=== PATIENT | male | born 1975 | race Caucasian/White ===

== ENCOUNTER 2020-08-22 14:17 | Inpatient (IN) | payer OTHER, SELFPAY ==
[~2020-08-22] VITALS: Ht 185.4 cm; Wt 235.9 kg
[2020-08-22 14:29] VITALS: Ht 185.4 cm; Wt 235.9 kg
[2020-08-22 15:36] LABS: BASOPHIL % 0.2 % (0.2-1.5)
[2020-08-22 15:37] LABS: PLATELET COUNT 333 x10^3mcL (152-348)
[2020-08-22 15:44] LABS: RED CELL DISTRIBUTION WIDTH 17.7 % (12.1-16.2)
[2020-08-22 15:57] LABS: BILIRUBIN TOTAL 0.8 mg/dL (0.20-1.00); CALCIUM 8.3 mg/dL (8.5-10.1); CARBON DIOXIDE 24.8 mmol/L (21-32); CREATININE SERUM 1.5 mg/dL (0.7-1.3); POTASSIUM SERUM 3.4 mmol/L (3.5-5.1); TOTAL PROTEIN, SERUM 7.3 g/dL (6.4-8.2)
[2020-08-22 16:01] LABS: ALBUMIN 2.2 g/dL (3.4-5.0); CHOLESTEROL/HDL RATIO 8.6
[2020-08-22] MEDS ORDERED: ZESTRIL20 MG PO (18:28)
[2020-08-23 01:33] VITALS: BP 132/65
[2020-08-23 01:58] LABS: UA SPECIFIC GRAVITY 1.025 (1.005-1.035); microscopic required? YES; urine erythrocyte 1+ (NEGATIVE)
[2020-08-23 05:35] VITALS: BP 136/74
[2020-08-23 08:07] LABS: BASOPHIL % 0.1 % (0.2-1.5); PLATELET COUNT 348 x10^3mcL (152-348)
[2020-08-23 08:31] LABS: RED CELL DISTRIBUTION WIDTH 17.9 % (12.1-16.2)
[2020-08-23 08:52] LABS: ALKALINE PHOSPHATASE 72 U/L (46-116); ALT/SGPT 91 U/L (16-63); AST/SGOT 81 U/L (15-37); BILIRUBIN TOTAL 0.61 mg/dL (0.20-1.00); CALCIUM 8.4 mg/dL (8.5-10.1); CARBON DIOXIDE 28.4 mmol/L (21-32); CHLORIDE SERUM 98 mmol/L (98-107); CREATININE SERUM 1.1 mg/dL (0.7-1.3); GFR1 > 60 mL/min; GLUCOSE SERUM 92 mg/dL (74-106); MAGNESIUM 2.2 mg/dL (1.8-2.4); PHOSPHOROUS 3.8 mg/dL (2.5-4.9); POTASSIUM SERUM 3.3 mmol/L (3.5-5.1); SODIUM SERUM 136 mmol/L (136-145); TOTAL PROTEIN, SERUM 6.7 g/dL (6.4-8.2); TRIGLYCERIDES 129 mg/dL (<150)
[2020-08-23 08:58] LABS: ALBUMIN 1.9 g/dL (3.4-5.0); CHOLESTEROL 106 mg/dL (<200); CHOLESTEROL/HDL RATIO 7.6; HDL CHOLESTEROL 14 mg/dL (40-60)
[2020-08-23 10:15] VITALS: BP 112/57
[2020-08-23 15:04] VITALS: BP 117/68
[2020-08-23 18:14] VITALS: BP 124/66
[2020-08-23 21:13] VITALS: BP 111/63
[2020-08-24 05:55] VITALS: BP 128/74
[2020-08-24 07:24] LABS: BASOPHIL % 0.1 % (0.2-1.5)
[2020-08-24 07:38] LABS: PLATELET COUNT 404 x10^3mcL (152-348); RED CELL DISTRIBUTION WIDTH 17.6 % (12.1-16.2)
[2020-08-24 07:43] LABS: BILIRUBIN TOTAL 0.7 mg/dL (0.20-1.00); CALCIUM 7.4 mg/dL (8.5-10.1); CARBON DIOXIDE 27.7 mmol/L (21-32); CREATININE SERUM 2.4 mg/dL (0.7-1.3); MAGNESIUM 2.1 mg/dL (1.8-2.4); PHOSPHOROUS 4.3 mg/dL (2.5-4.9); TOTAL PROTEIN, SERUM 6.4 g/dL (6.4-8.2)
[2020-08-24 09:07] VITALS: BP 121/76
[2020-08-24 18:28] VITALS: BP 121/72
[2020-08-24 20:13] VITALS: BP 116/58; BP 123/75
[2020-08-25 04:31] VITALS: BP 144/84
[2020-08-25 07:36] LABS: BASOPHIL % 0.1 % (0.2-1.5)
[2020-08-25 07:40] LABS: PLATELET COUNT 428 x10^3mcL (152-348); RED CELL DISTRIBUTION WIDTH 17.8 % (12.1-16.2)
[2020-08-25 08:02] LABS: rbc morphology (normal/abnorm) NORMAL (NORMAL)
[2020-08-25 08:28] LABS: BILIRUBIN TOTAL 0.52 mg/dL (0.20-1.00); CALCIUM 8.7 mg/dL (8.5-10.1); CARBON DIOXIDE 29.2 mmol/L (21-32); MAGNESIUM 2.4 mg/dL (1.8-2.4); PHOSPHOROUS 5.4 mg/dL (2.5-4.9); POTASSIUM SERUM 3.8 mmol/L (3.5-5.1)
[2020-08-25 08:59] LABS: ALBUMIN 1.9 g/dL (3.4-5.0)
[2020-08-25 09:13] VITALS: BP 140/55
[2020-08-25 17:35] VITALS: BP 139/82
[2020-08-25 19:50] VITALS: BP 122/71
[2020-08-26 05:35] VITALS: BP 126/71
[2020-08-26 06:26] LABS: ALKALINE PHOSPHATASE 69 U/L (46-116); ALT/SGPT 64 U/L (16-63); AST/SGOT 38 U/L (15-37); BILIRUBIN TOTAL 0.5 mg/dL (0.20-1.00); CALCIUM 8.6 mg/dL (8.5-10.1); CARBON DIOXIDE 30.3 mmol/L (21-32); CHLORIDE SERUM 101 mmol/L (98-107); CREATININE SERUM 1.2 mg/dL (0.7-1.3); GFR1 > 60 mL/min; GLUCOSE SERUM 91 mg/dL (74-106); MAGNESIUM 1.9 mg/dL (1.8-2.4); PHOSPHOROUS 3.3 mg/dL (2.5-4.9); POTASSIUM SERUM 3.7 mmol/L (3.5-5.1); SODIUM SERUM 136 mmol/L (136-145); TOTAL PROTEIN, SERUM 6.5 g/dL (6.4-8.2)
[2020-08-26 07:01] LABS: ALBUMIN 1.8 g/dL (3.4-5.0)
[2020-08-26 07:22] LABS: BASOPHIL % 0.2 % (0.2-1.5)
[2020-08-26 08:09] LABS: PLATELET COUNT 432 x10^3mcL (152-348); RED CELL DISTRIBUTION WIDTH 17.6 % (12.1-16.2)
[2020-08-26 08:31] VITALS: BP 124/67
[2020-08-26] MEDS ORDERED: ROC1I IV (11:56)
[2020-08-26 12:22] VITALS: BP 137/72
[2020-08-26 13:06] VITALS: BP 137/72
[2020-08-26 16:08] VITALS: BP 126/63
[2020-08-26 19:15] VITALS: BP 119/70
[2020-08-27 05:40] VITALS: BP 166/87
[2020-08-27 07:10] LABS: BASOPHIL % 0.3 % (0.2-1.5)
[2020-08-27 07:30] LABS: ALKALINE PHOSPHATASE 63 U/L (46-116); ALT/SGPT 73 U/L (16-63); AST/SGOT 43 U/L (15-37); BILIRUBIN TOTAL 0.4 mg/dL (0.20-1.00); CALCIUM 8.2 mg/dL (8.5-10.1); CARBON DIOXIDE 30.6 mmol/L (21-32); CHLORIDE SERUM 104 mmol/L (98-107); CREATININE SERUM 0.9 mg/dL (0.7-1.3); GFR1 > 60 mL/min; GLUCOSE SERUM 89 mg/dL (74-106); MAGNESIUM 1.5 mg/dL (1.8-2.4); PHOSPHOROUS 2.8 mg/dL (2.5-4.9); POTASSIUM SERUM 3.9 mmol/L (3.5-5.1); SODIUM SERUM 138 mmol/L (136-145); TOTAL PROTEIN, SERUM 6.7 g/dL (6.4-8.2)
[2020-08-27 07:33] LABS: ALBUMIN 1.8 g/dL (3.4-5.0)
[2020-08-27 07:37] LABS: PLATELET COUNT 436 x10^3mcL (152-348); RED CELL DISTRIBUTION WIDTH 17.4 % (12.1-16.2)
[2020-08-27 08:37] VITALS: BP 139/89
[2020-08-27 08:42] VITALS: BP 139/89
[2020-08-27 12:48] VITALS: BP 144/86
[2020-08-27 12:56] VITALS: BP 144/86
[2020-08-27 13:32] VITALS: BP 144/86
== END 2020-08-27 15:05 | disposition home or self-care (01) | DRG 871 ==
LOC: ED 14:17 → DU 18:07
PROVIDERS: Specialist; ADMIT Hospitalist; ATTEND Hospitalist
DX: A41.89 Other specified sepsis (principal); U07.1 COVID-19; N17.9 Acute kidney failure, unspecified; N39.0 Urinary tract infection, site not specified; Z68.44 Body mass index [BMI] 60.0-69.9, adult; B96.20 Unspecified Escherichia coli [E. coli] as the cause of diseases classified elsewhere; E66.01 Morbid (severe) obesity due to excess calories; D72.829 Elevated white blood cell count, unspecified; N18.9 Chronic kidney disease, unspecified; I12.9 Hypertensive chronic kidney disease with stage 1 through stage 4 chronic kidney disease, or unspecified chronic kidney disease; T39.395A Adverse effect of other nonsteroidal anti-inflammatory drugs [NSAID], initial encounter
CPT/HCPCS: 83880; 85378; 97110-GP; 97116-GP; 97530-GP; G0378; J0696; J1644; J1885; J2543; J3475; J7030; J7040; J7060; U0003